=== PATIENT | female | born 1995 | race African-American/Black ===

== ENCOUNTER 2024-04-13 11:25 | Emergency (ER) | payer MEDICAID ==
[~2024-04-13] VITALS: Ht 165.1 cm; Wt 63.5 kg
[2024-04-13 11:33] VITALS: O2SAT 100
[2024-04-13 11:58] LABS: CLARITY URINE CLOUDY (CLEAR); COLOR URINE DARK YELLOW (YELLOW); GLUCOSE URINE NEGATIVE (NEGATIVE); KETONES URINE 1+ (NEGATIVE); LEUKOCYTE ESTERASE URINE 3+ (NEGATIVE); NITRITE URINE POSITIVE (NEGATIVE); OCCULT BLOOD URINE 3+ (NEGATIVE); PROTEIN URINE 1+ (NEGATIVE); SPECIFIC GRAVITY URINE 1.012 (1.005-1.030)
[2024-04-13 11:59] LABS: BASOPHILS % 0.4 % (0.0-2.0); EOSINOPHILS % 0.1 % (0.0-5.0); HEMATOCRIT. 35.6 % (36.0-48.0); HEMOGLOBIN. 11.9 g/dL (12.0-16.0); LYMPHOCYTES % 12.7 % (20.0-50.0); MEAN CORPUSCULAR HEMOGLOBIN 26.9 pg (28.0-32.0); MEAN CORPUSCULAR HGB CONC 33.5 g/dL (31.0-37.0); MEAN CORPUSCULAR VOLUME 80.4 fL (81.0-99.0); MEAN PLATELET VOLUME 7.8 fl (7.4-10.4); MONOCYTES % 10.7 % (2.0-8.0); NEUTROPHILS % 76.1 % (40.0-76.0); PLATELET 382 x1000/uL (130-400); RED BLOOD CELL COUNT 4.43 mill/uL (4.2-5.4); RED CELL DISTRIBUTION WIDTH 15.1 % (11.6-14.6); WHITE BLOOD COUNT 15.9 x1000/uL (4.5-11.0)
[2024-04-13 12:09] LABS: CHLORIDE 99 mEq/L (98-107); POTASSIUM 3.1 mEq/L (3.5-5.1); SODIUM 132 mEq/L (136-145)
[2024-04-13 12:10] LABS: CARBON DIOXIDE 22 mEq/L (21-32)
[2024-04-13 12:15] LABS: GLUCOSE 106 mg/dL (70-105)
[2024-04-13 12:16] LABS: UREA NITROGEN BLOOD 12 mg/dL (9-23)
[2024-04-13 12:32] LABS: BACTERIA URINE 2+; RBC URINE 50-100 /hpf (0-2); SQUAMOUS EPITHELIAL CELL URINE 2+ /lpf (RARE/1+); WBC URINE 50-100 /hpf (0-2); YEAST URINE NONE SEEN
[2024-04-13] MEDS: SODIUM CHLORIDE 0.9% 500 ML IV ONE (14:13)
[2024-04-13] MEDS: KETOROLAC 30MG/ML VIAL IV ONE (14:13)
[2024-04-13] MEDS: ONDANSETRON HCL 4MG/2ML INJ IV ONE (14:13)
[2024-04-13] MEDS: CEFTRIAXONE 1GM/50ML 50 ML IV ONE (14:14)
[2024-04-13] MEDS ORDERED: SULF1TAB48 MT (15:46)
[2024-04-13] MEDS ORDERED: IBUP-2029 MT (15:47)
[2024-04-13] MEDS: POTASSIUM CHLORIDE 20MEQ TABLET SR PO ONE (16:48)
[2024-04-13 16:50] VITALS: BP 116/71; PULSE 100; RESP 16; TEMP 38.00304; O2SAT 100
== END 2024-04-13 17:05 | disposition home or self-care (01) ==
LOC: ER 11:25
DX: N12 Tubulo-interstitial nephritis, not specified as acute or chronic (principal); Z98.890 Other specified postprocedural states; Z88.0 Allergy status to penicillin
CPT/HCPCS: 80048; 81003; 81025; 83605; 85025; 87040; 87086; 87186; 87077; 36415; 96365; 96375; 99284; J0696; J1885; J2405; J7030; Z7610 ×3